=== PATIENT | female | born 1960 ===

== ENCOUNTER 2020-09-08 08:03 | Day surgery (SDC) | payer MEDICAID ==
[~2020-09-08] VITALS: Ht 157.5 cm; Wt 100.3 kg
[2020-09-08] VITALS (14 sets, daily range): BP systolic 95–142; BP diastolic 44–67; PULSE 54–72; TEMP 98.7
[2020-09-08 09:24] LABS: HEMATOCRIT 42.3 % (37.0-47.0); HEMOGLOBIN 13.5 g/dl (12.5-16.0); MEAN CELL VOLUME 83 fl (80.0-100.0); MEAN CORPUSCULAR HEMOGLOBIN 27 pg (27.0-31.0); MEAN CORPUSCULAR HGB CONC 32 g/dl (33.0-37.0); MEAN PLATELET VOLUME 10.2 fl (7.4-10.4); PLATELET COUNT 320 K/mm3 (130-400); RED BLOOD COUNT 5.09 M/mm3 (4.10-5.30); REDCELL DISTRIBUTION WIDTH-CV 14.1 % (11.5-14.5)
[2020-09-08 09:34] LABS: CALCIUM 8.8 mg/dL (8.4-10.2); CREATININE, serum 0.72 (0.52-1.25)
[2020-09-08 09:47] LABS: INR 1.1 (0.8-3.0); PROTHROMBIN TIME 12.1 SECONDS (9.7-12.8)
[2020-09-08 09:50] LABS: PARTIAL THROMBOPLASTIN TIME 31.2 SECONDS (26.0-37.0)
[2020-09-08] MEDS ORDERED: IMDUR 30MG30 MG/TAB PO (09:56)
[2020-09-08] MEDS ORDERED: ASPIRIN 81M81 MG/TA2 PO (09:56)
[2020-09-08] MEDS ORDERED: VITAMINS CHILDR1 CT1 PO (09:57)
[2020-09-08] MEDS ORDERED: ESTRACE0.5 MG PO (09:57)
[2020-09-08] MEDS ORDERED: GNC L-ARGININE500 MG PO (10:02)
[2020-09-08] MEDS ORDERED: TOPROL XL 25MG25 MG PO (10:03)
[2020-09-08] MEDS ORDERED: DITROPAN 5MG TAB5 MG PO (10:03)
[2020-09-08] MEDS ORDERED: PRILOSEC 20MG20 MG PO (10:04)
[2020-09-08] MEDS ORDERED: NATURAL E400 IU PO (10:18)
--- NOTE | 2020-09-08 14:09 | NUR ---
Right Tband discontinued and dressing placed at site. INT discontinued intact
[2020-09-08] MEDS ORDERED: CELEBREX 200MG200 MG PO (16:30)
[2020-09-08] MEDS ORDERED: PROTONIX 40MG T40 MG PO (16:31)
--- NOTE | 2020-09-08 16:45 | NUR ---
Discharge instructions given to pt.Pt verbalizes understanding.INT removed,catheter tip intact.Pt escorted out via wheelchair y this nurse.
== END 2020-09-08 17:00 | disposition home or self-care (01) ==
LOC: COL.CAR 08:03
PROVIDERS: Internal Medicine Cardiovascular Disease
DX: I25.10 Atherosclerotic heart disease of native coronary artery without angina pectoris (principal); I48.0 Paroxysmal atrial fibrillation; I10 Essential (primary) hypertension; Z77.22 Contact with and (suspected) exposure to environmental tobacco smoke (acute) (chronic); Z79.899 Other long term (current) drug therapy
CPT/HCPCS: C1769; J1644; J2250; J3010

== ENCOUNTER 2024-01-08 14:12 | Outpatient (RCR) | payer MEDICAID ==
[~2024-01-08 14:12] MED LIST: ASPIRIN 81M81 MG/TA2 PO; CELEBREX 200MG200 MG PO; DITROPAN 5MG TAB5 MG PO; ESTRACE0.5 MG PO; GNC L-ARGININE500 MG PO; IMDUR 30MG30 MG/TAB PO; NATURAL E400 IU PO; PRILOSEC 20MG20 MG PO; PROTONIX 40MG T40 MG PO; TOPROL XL 25MG25 MG PO; VITAMINS CHILDR1 CT1 PO
== END 2024-01-14 | disposition home or self-care (01) ==
LOC: MKS.ESL.OT
DX: M48.061 Spinal stenosis, lumbar region without neurogenic claudication (principal); M54.10 Radiculopathy, site unspecified